=== PATIENT | female | born 1975 | race African-American/Black ===

== ENCOUNTER 2017-05-29 03:20 | Emergency (ER) | payer OTHER ==
[~2017-05-29] VITALS: Ht 165.1 cm; Wt 81.6 kg
[~2017-05-29 03:20] MED LIST: BACLOFEN10 MG PO; DICLOFENAC SODI50 MG PO; MEDROL DOSEPAK4 MG PO; NO MEDICATIONS
== END 2017-05-29 04:27 | disposition home or self-care (01) ==
LOC: SED 03:20
DX: R03.0 Elevated blood-pressure reading, without diagnosis of hypertension (principal); R22.9 Localized swelling, mass and lump, unspecified; T78.1XXA Other adverse food reactions, not elsewhere classified, initial encounter
CPT/HCPCS: 96372; 99283; J1040